=== PATIENT | male | born 1960 | race Two or more races ===

== ENCOUNTER 2017-03-09 12:43 | Inpatient (IN) | payer OTHER ==
[2017-03-09] MEDS ORDERED: SODIUM CHLORIDE 0.9% 500 ML IV STA (12:48)
[2017-03-09] MEDS ORDERED: SODIUM CHLORIDE 0.9% 1,000 ML IV STA ×2 (12:48)
[2017-03-09] MEDS ORDERED: MORPHINE SULFATE 10 MG/ML SYRINGE IV STA (12:48)
[2017-03-09] MEDS ORDERED: ONDANSETRON 4 MG/2 ML VIAL IVP STA (12:48)
--- NOTE | 2017-03-09 12:50 | ED ---
General Adult HPI - General Stated complaint: GA Time Seen by Provider: 03/09/17 12:45 Source: RN notes reviewed, old records reviewed - History of Present Illness Initial comments: This is a 57-year-old male to the ER for evaluation. Patient presents today for evaluation regarding pain. Severe pain severe acetify paints verified chest pain radiating to his back rating to his right shoulder. Patient has no significant medical history. No significant history of similar pain. No nausea vomiting maybe a little shortness of breath secondary to decreased ability to take a deep breath. Patient states that his pain is improved from prior. EMS states the patient was very diaphoretic upon arrival. Patient is still a severe pain at this time - Related Data Home Medications Medication Instructions Recorded Confirmed No Known Home Medications [No 03/09/17 03/09/17 Known Home Medications] Allergies Allergy/AdvReac Type Severity Reaction Status Date / Time No Known Allergies Allergy Verified 03/09/17 13:34 Review of Systems ROS Statement: Those systems with pertinent positive or pertinent negative responses have been documented in the HPI. ROS Other: All systems not noted in ROS Statement are negative. General Exam General appearance: alert, anxious, in distress Head exam: Present: atraumatic, normocephalic, normal inspection Eye exam: Present: normal appearance, PERRL, EOMI. Absent: scleral icterus, conjunctival injection, periorbital swelling ENT exam: Present: normal exam, mucous membranes moist Neck exam: Present: normal inspection. Absent: tenderness, meningismus, lymphadenopathy Respiratory exam: Present: normal lung sounds bilaterally. Absent: respiratory distress, wheezes, rales, rhonchi, stridor Cardiovascular Exam: Present: regular rate, normal rhythm, normal heart sounds. Absent: systolic murmur, diastolic murmur, rubs, gallop, clicks GI/Abdominal exam: Present: soft, normal bowel sounds. Absent: distended, tenderness, guarding, rebound, rigid Extremities exam: Present: normal inspection, full ROM, normal capillary refill. Absent: tenderness, pedal edema, joint swelling, calf tenderness Back exam: Present: normal inspection Neurological exam: Present: alert, oriented X3, CN II-XII intact Psychiatric exam: Present: normal affect, normal mood Skin exam: Present: warm, dry, intact, normal color. Absent: rash Course Vital Signs 03/09/17 03/09/17 03/09/17 12:48 13:17 14:34 Temperature 98.2 F 99.7 F H Pulse Rate 100 83 86 Respiratory 18 18 18 Rate Blood Pressure 194/134 131/75 139/66 O2 Sat by Pulse 96 96 96 Oximetry 03/09/17 15:19 Temperature Pulse Rate 82 Respiratory 18 Rate Blood Pressure 136/82 O2 Sat by Pulse 97 Oximetry - Reevaluation(s) Reevaluation #1: 03/09/17 14:39 Patient is in severe is pain at this point responding to pain medication Reevaluation #2: 03/09/17 15:34 Patient is smoker with greater than 15 minutes, questions are answered EKG Findings - EKG Comments: EKG Findings:: EKG shows normal sinus rhythm rate of 98, NV 170, QRS 86, QTc 444 Medical Decision Making - Medical Decision Making 57 male the ER with severe chest pain severe flank pain severe shoulder pain. 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, anticoagulation - Lab Data Result diagrams: 03/09/17 13:06 03/09/17 13:06 Lab Results 03/09/17 03/09/17 03/09/17 Range/Units 13:06 13:06 13:06 WBC 8.0 (3.8-10.6) k/uL RBC 5.21 (4.30-5.90) m/uL Hgb 14.5 (13.0-17.5) gm/dL Hct 44.2 (39.0-53.0) % MCV 85.0 (80.0-100.0) fL MCH 27.9 (25.0-35.0) pg MCHC 32.8 (31.0-37.0) g/dL RDW 14.7 (11.5-15.5) % Plt Count 264 (150-450) k/uL Neutrophils % 60 % Lymphocytes % 28 % Monocytes % 8 % Eosinophils % 1 % Basophils % 1 % Neutrophils # 4.8 (1.3-7.7) k/uL Lymphocytes # 2.2 (1.0-4.8) k/uL Monocytes # 0.6 (0-1.0) k/uL Eosinophils # 0.1 (0-0.7) k/uL Basophils # 0.0 (0-0.2) k/uL PT (9.0-12.0) sec INR (<1.2) APTT (22.0-30.0) sec D-Dimer (<0.60) mg/L FEU Sodium 141 (137-145) mmol/L Potassium 4.4 (3.5-5.1) mmol/L Chloride 108 H (98-107) mmol/L Carbon Dioxide 23 (22-30) mmol/L Anion Gap 10 mmol/L BUN 12 (9-20) mg/dL Creatinine 0.88 (0.66-1.25) mg/dL Est GFR (MDRD) Af Amer >60 (>60 ml/min/1.73 sqM) Est GFR (MDRD) Non-Af >60 (>60 ml/min/1.73 sqM) Glucose 129 H (74-99) mg/dL Plasma Lactic Acid Baron (0.7-2.0) mmol/L Calcium 9.6 (8.4-10.2) mg/dL Phosphorus 3.2 (2.5-4.5) mg/dL Magnesium 1.8 (1.6-2.3) mg/dL Total Bilirubin 0.4 (0.2-1.3) mg/dL AST 20 (17-59) U/L ALT 28 (21-72) U/L Alkaline Phosphatase 85 (38-126) U/L Total Creatine Kinase 145 (55-170) U/L CK-MB (CK-2) 1.7 (0.0-2.4) ng/mL CK-MB (CK-2) Rel Index 1.2 Troponin I <0.012 (0.000-0.034) ng/mL Total Protein 7.1 (6.3-8.2) g/dL Albumin 4.0 (3.5-5.0) g/dL Lipase (23-300) U/L 03/09/17 03/09/17 03/09/17 Range/Units 13:06 13:06 13:06 WBC (3.8-10.6) k/uL RBC (4.30-5.90) m/uL Hgb (13.0-17.5) gm/dL Hct (39.0-53.0) % MCV (80.0-100.0) fL MCH (25.0-35.0) pg MCHC (31.0-37.0) g/dL RDW (11.5-15.5) % Plt Count (150-450) k/uL Neutrophils % % Lymphocytes % % Monocytes % % Eosinophils % % Basophils % % Neutrophils # (1.3-7.7) k/uL Lymphocytes # (1.0-4.8) k/uL Monocytes # (0-1.0) k/uL Eosinophils # (0-0.7) k/uL Basophils # (0-0.2) k/uL PT 10.4 (9.0-12.0) sec INR 1.0 (<1.2) APTT 22.5 (22.0-30.0) sec D-Dimer 2.32 H (<0.60) mg/L FEU Sodium (137-145) mmol/L Potassium (3.5-5.1) mmol/L Chloride (98-107) mmol/L Carbon Dioxide (22-30) mmol/L Anion Gap mmol/L BUN (9-20) mg/dL Creatinine (0.66-1.25) mg/dL Est GFR (MDRD) Af Amer (>60 ml/min/1.73 sqM) Est GFR (MDRD) Non-Af (>60 ml/min/1.73 sqM) Glucose (74-99) mg/dL Plasma Lactic Acid Baron 1.4 (0.7-2.0) mmol/L Calcium (8.4-10.2) mg/dL Phosphorus (2.5-4.5) mg/dL Magnesium (1.6-2.3) mg/dL Total Bilirubin (0.2-1.3) mg/dL AST (17-59) U/L ALT (21-72) U/L Alkaline Phosphatase (38-126) U/L Total Creatine Kinase (55-170) U/L CK-MB (CK-2) (0.0-2.4) ng/mL CK-MB (CK-2) Rel Index Troponin I (0.000-0.034) ng/mL Total Protein (6.3-8.2) g/dL Albumin (3.5-5.0) g/dL Lipase 83 (23-300) U/L - Radiology Data Radiology results: report reviewed (CTA is positive for PE), image reviewed Disposition Clinical Impression: Pulmonary embolism Disposition: ADMITTED IP TO THIS HOSP Condition: Fair Referrals: Nonstaff,Physician [Primary Care Provider] - 1-2 days
--- NOTE | 2017-03-09 13:10 | XR ---
EXAMINATION TYPE: XR chest 1V portable DATE OF EXAM: 03/09/2017 COMPARISON: NONE HISTORY: Shortness of breath TECHNIQUE: Single frontal view of the chest is obtained. FINDINGS: There are low lung volumes present. Left basilar subsegmental linear atelectasis is identi fied. Copious soft tissues partially obscure the costophrenic angles and lung bases. The lung finding s accentuate the pulmonary vasculature. Cardiac silhouette is upper limits of normal. No focal consol idation, discrete pleural effusion or pneumothorax is seen. IMPRESSION: Left basilar subsegmental atelectasis and low lung volumes. No focal consolidation.
[2017-03-09 13:14] LABS: Basophils % (A) 1 %; CH 28.2; CHCM 33.4; Eosinophils # (A) 0.1 k/uL (0-0.7); Eosinophils % (A) 1 %; HCT 44.2 % (39.0-53.0); HDW 2.57; HGB 14.5 gm/dL (13.0-17.5); Luc # (Auto) 0.22; Luc % (Auto) 3; Lymphocytes # (A) 2.2 k/uL (1.0-4.8); Lymphocytes % (A) 28 %; MCH 27.9 pg (25.0-35.0); MCHC 32.8 g/dL (31.0-37.0); Mean Platelet Volume 7.1; Monocytes # (A) 0.6 k/uL (0-1.0); Monocytes % (A) 8 %; Neutrophils # (A) 4.8 k/uL (1.3-7.7); Neutrophils % (A) 60 %; RBC 5.21 m/uL (4.30-5.90); RDW 14.7 % (11.5-15.5); WBC (Perox) 7.48
[2017-03-09 13:23] LABS: ALT 28 U/L (21-72); AST 20 U/L (17-59); Alkaline Phosphatase 85 U/L (38-126); Anion Gap 10 mmol/L; Blood Urea Nitrogen 12 mg/dL (9-20); Calcium 9.6 mg/dL (8.4-10.2); Carbon Dioxide 23 mmol/L (22-30); Chloride 108 mmol/L (98-107); Glucose 129 mg/dL (74-99); Magnesium 1.8 mg/dL (1.6-2.3); Non-African American GFR(MDRD) >60 (>60 ml/min/1.73 sqM); Phosphorus 3.2 mg/dL (2.5-4.5); Potassium 4.4 mmol/L (3.5-5.1); Sodium 141 mmol/L (137-145); Total Bilirubin 0.4 mg/dL (0.2-1.3); Total Protein 7.1 g/dL (6.3-8.2)
[2017-03-09 13:26] LABS: Partial Thromboplastin Time 22.5 sec (22.0-30.0); Prothrombin Time 10.4 sec (9.0-12.0)
[2017-03-09 13:37] LABS: Creatine Kinase 145 U/L (55-170)
[2017-03-09] MEDS ORDERED: MORPHINE SULFATE 10 MG/ML SYRINGE IVP STA (13:39)
[2017-03-09 13:49] LABS: Creatine Kinase MB 1.7 ng/mL (0.0-2.4); Troponin I <0.012 ng/mL (0.000-0.034)
[2017-03-09] MEDS ORDERED: RX INFO: IV CONTRAST WAS GIVEN 1 EACH MISC MISCELLANE PRN (13:55)
[2017-03-09] MEDS ORDERED: LORazepam 2 MG/ML INJ IV STA (13:56)
--- NOTE | 2017-03-09 14:57 | CT ---
EXAMINATION TYPE: CT abdomen pelvis w con DATE OF EXAM: 03/09/2017 COMPARISON: NONE HISTORY: GA CT DLP: 2392.39 mGycm CONTRAST: CT scan of the abdomen and pelvis is performed without Oral Contrast and with IV Contrast, patient in jected with 100 ml mL of Omnipaque 350. FINDINGS: LUNG BASES-: Small right-sided pleural effusion with mild compressive atelectasis. LIVER/GB: No calcified gallstones. No space occupying hepatic lesion. Biliary tree is of normal ca liber. Hepatic steatosis with mild hepatomegaly. PANCREAS: No inflammation. No distinct mass. SPLEEN: No splenic enlargement. No lesion seen. ADRENALS: No nodule. No thickening. KIDNEYS/BLADDER: No hydronephrosis. No nephrolithiasis. No disctinct renal mass. Mild urinary blad jhony wall thickening may reflect cystitis. BOWEL: Normal appendix. Normal bowel caliber. No inflammation. Umbilical hernia contains a short se gment of small bowel. Incarceration not excluded. GENITAL ORGANS: No gross abnormality. LYMPH NODES: No greater than 1cm abdominal or pelvic lymph nodes are appreciated. AORTA: No significant abnormality. OSSEOUS STRUCTURES: No significant abnormality is seen. OTHER: Bilateral fat-containing inguinal hernias. IMPRESSION: 1. Umbilical hernia contains a short segment of small bowel. Incarceration not excluded. 2. Hepatic steatosis mild hepatomegaly. 3. Fat-containing inguinal hernias.
--- NOTE | 2017-03-09 15:03 | CT ---
EXAMINATION TYPE: CT angio chest DATE OF EXAM: 03/09/2017 COMPARISON: NONE HISTORY: GA CT DLP: 605.16 mGycm. Automated Exposure Control for Dose Reduction was Utilized. CONTRAST: CTA scan of the thorax is performed with IV Contrast, patient injected with 100 ml mL of Omnipaque 35 0, pulmonary embolism protocol. MIP Images are created on CT scanner and reviewed. FINDINGS: LUNGS: Geographic areas of groundglass opacity are scattered throughout the lungs, predominating with in a dependent distribution. Additional areas of wedge-shaped opacity are seen within the right lung base, lingula and superior segment of the right lower lobe that may represent oligemia and/or pulmona ry infarct. Groundglass opacities are favored to represent multifocal atelectasis given low lung volu mes. Motion artifact limits evaluation for subcentimeter pulmonary nodules. There is no pneumothora x. Trace right pleural effusion is present. The tracheobronchial tree is patent. MEDIASTINUM: There is satisfactory enhancement of the pulmonary artery and its branches. Segmental an d subsegmental nonocclusive filling defects representing pulmonary emboli are seen to the right middl e lobe, right lower lobe, and left lower lobe. There is no bowing of the interventricular septum or r eflux of contrast into the hepatic veins. The main pulmonary artery is nonenlarged measuring 2.7 cm. There are no greater than 1 cm hilar or mediastinal lymph nodes. Nonenlarged axillary lymph nodes co ntain fatty berhane bilaterally. No cardiomegaly or pericardial effusion is seen. OTHER: There is diffuse hypoattenuation of the visualized hepatic parenchyma, most compatible with mo derate hepatic steatosis with focal fatty sparing around the gallbladder fossa and segment IVb of the liver. There is a small hiatal hernia present. Symmetric mild retroareolar gynecomastia is noted. Mi ld multilevel degenerative changes of the thoracic spine are seen as well as an exaggerated thoracic kyphosis, possibly positional. IMPRESSION: 1. Segmental and subsegmental pulmonary emboli to the right middle, right lower, and left lower lobe. No evidence of subsequent right heart strain. 2. Multifocal atelectasis and wedge-shaped areas of consolidation within the superior segment of the right lower lobe, right lung base and lingula that may represent oligemia and/or pulmonary infarcts i n the setting of pulmonary embolus. 3. Trace right pleural effusion. 4. Hepatic steatosis, appearing moderate in degree with focal fatty sparing around the gallbladder fo ssa. 5. Incidentally identified retroareolar bilateral gynecomastia. Findings relayed to the ordering physician Dr. Gilmore at 1501 on 03/09/2017.
[2017-03-09] MEDS ORDERED: NITROGLYCERIN SL TABS 0.4 MG TAB SUBLINGUAL PRN (15:31)
[2017-03-09] MEDS ORDERED: HEPARIN SODIUM,PORCINE 10,000 UNIT/ML 1 ML VIAL IV ONE (15:32)
[2017-03-09] MEDS ORDERED: HEPARIN SODIUM,PORCINE 5,000 UNIT/ML 1 ML VIAL IV PRN (15:32)
[2017-03-09 15:33] LABS: Appearance,Urine Clear (Clear); Bilirubin,Urine Negative (Negative); Glucose,Urine (UA) Negative (Negative); Ketones,Urine Negative (Negative); Leukocyte Esterase,Urine Negative (Negative); Nitrite,Urine Negative (Negative); PH, Urine 5.5 (5.0-8.0); Protein,Urine Trace (Negative); Specific Gravity,Urine 1.045 (1.001-1.035); UA Billing (MACRO vs. MICRO) CHEM; Urobilinogen,Urine <2.0 mg/dL (<2.0)
[2017-03-09] MEDS: HEPARIN SODIUM,PORCINE/D5W PMX 25,000 UNIT in DEXTROSE/WATER 1 500ML.BAG IV SCH (15:38)
--- NOTE | 2017-03-09 16:12 | US ---
EXAMINATION TYPE: US venous doppler duplex LE BI DATE OF EXAM: 03/09/2017 4:02 PM COMPARISON: NONE CLINICAL HISTORY: Pain. Bilateral leg swelling, PE SIDE PERFORMED: Bilateral TECHNIQUE: The lower extremity deep venous system is examined utilizing real time linear array sonog joyce with graded compression, doppler sonography and color-flow sonography. VESSELS IMAGED: External Iliac Vein (EIV) Common Femoral Vein Deep Femoral Vein Greater Saphenous Vein * Femoral Vein Popliteal Vein Small Saphenous Vein * Proximal Calf Veins (* superficial vessels) Grayscale, color doppler, spectral doppler imaging performed of the deep veins of the lower extremiti es. There is normal flow, compressibility, vascular waveforms. Right Leg: Negative for DVT Left Leg: Negative for DVT IMPRESSION: No evidence for DVT at this time.
[2017-03-09] MEDS: SODIUM CHLORIDE 0.9% 1,000 ML IV SCH (16:58)
[2017-03-09 21:18] LABS: Troponin I 0.017 ng/mL (0.000-0.034)
[2017-03-09] MEDS: MORPHINE SULFATE 10 MG/ML SYRINGE IV PRN (23:55)
[2017-03-10] MEDS ORDERED: CYCLOBENZAPRINE 10 MG TAB PO PRN (00:45)
[2017-03-10 02:59] LABS: Basophils % (A) 0 %; CH 27.9; CHCM 31.9; Eosinophils # (A) 0.1 k/uL (0-0.7); Eosinophils % (A) 1 %; HCT 42.1 % (39.0-53.0); HDW 2.53; HGB 13.3 gm/dL (13.0-17.5); Luc # (Auto) 0.15; Luc % (Auto) 2; Lymphocytes % (A) 28 %; MCH 27.8 pg (25.0-35.0); MCHC 31.5 g/dL (31.0-37.0); MCV 88.2 fL (80.0-100.0); Mean Platelet Volume 7.4; Monocytes # (A) 0.5 k/uL (0-1.0); Monocytes % (A) 7 %; Neutrophils # (A) 4.3 k/uL (1.3-7.7); Neutrophils % (A) 61 %; RBC 4.77 m/uL (4.30-5.90); RDW 14.9 % (11.5-15.5); WBC (Perox) 7.21
[2017-03-10 03:07] LABS: INR 1.1 (<1.2); Partial Thromboplastin Time 39.4 sec (22.0-30.0)
[2017-03-10] MEDS: SODIUM CHLORIDE 0.9% 1,000 ML IV SCH ×2 (03:10→15:53)
[2017-03-10 03:15] LABS: Cholesterol 149 mg/dL (<200); HDL Cholesterol 41 mg/dL (40-60)
[2017-03-10 03:25] LABS: Creatine Kinase 209 U/L (55-170)
[2017-03-10 03:38] LABS: Creatine Kinase MB 2.2 ng/mL (0.0-2.4); Troponin I <0.012 ng/mL (0.000-0.034)
[2017-03-10] MEDS: HEPARIN SODIUM,PORCINE/D5W PMX 25,000 UNIT in DEXTROSE/WATER 1 500ML.BAG IV SCH ×2 (04:59→15:53)
[2017-03-10] MEDS: MORPHINE SULFATE 10 MG/ML SYRINGE IV PRN ×2 (06:54→15:52)
[2017-03-10] MEDS: ASPIRIN 325 MG TAB PO SCH (08:22)
--- NOTE | 2017-03-10 08:30 | P.CRDCN ---
History of Present Illness Consult date: 03/10/17 Chief complaint: Chest pain History of present illness: This is a pleasant 57-year-old gentleman with no significant past medical history presented to the emergency room complaining of chest discomfort. The patient does have chronic exertional dyspnea over the last several years but yesterday he was in his usual state of health when suddenly developed chest discomfort mainly in the lower left chest and back. It was associated with worsening in his shortness of breath with the discomfort in the chest was a sharp kind of discomfort like a knife stabbing in the back and the chest. It was quite severe to bring him to the emergency room. The d-dimer came in to be elevated and subsequently the CTA of the chest revealed multiple PE. The EKG showed sinus rhythm with sinus tachycardia and S1 every 3 T3 pattern. Subsequently the venous duplex study was performed and showed no evidence of DVT. The patient was started on heparin IV and we get to see the patient because of the chest discomfort. The patient is not aware of any prior history of PE DVT. Currently the patient is pain-free. He did not have any other symptoms of cough or wheezing or fever or chills. 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 leatha inguinal hernias, constripation, History of Any Multi-Drug Resistant Organisms: None Reported Additional Past Surgical History / Comment(s): Brain biopsy, pt's stated he had pericarditis 9 years ago and they had to do sx -removed 1.5 liters fluid . Past Anesthesia/Blood Transfusion Reactions: No Reported Reaction Additional Past Anesthesia/Blood Transfusion Reaction / Comment(s): clausterphobia Smoking Status: Former smoker - Past Family History Mother Family Medical History: Hypertension Father Additional Family Medical History / Comment(s): parkinsons Medications and Allergies Home Medications Medication Instructions Recorded Confirmed Type No Known Home Medications [No 03/09/17 03/09/17 History Known Home Medications] Allergies Allergy/AdvReac Type Severity Reaction Status Date / Time No Known Allergies Allergy Verified 03/09/17 13:34 Physical Exam Vitals: Vital Signs Temp Pulse Pulse Resp BP BP Pulse Ox 03/10/17 08:00 97.7 F 92 16 141/92 98 03/10/17 03:00 97.5 F L 82 20 127/83 100 03/10/17 00:00 97.6 F 78 20 150/88 97 03/09/17 19:50 97.9 F 91 20 122/85 98 03/09/17 17:00 97.2 F L 54 L 18 153/67 98 03/09/17 15:19 82 18 136/82 97 03/09/17 14:34 86 18 139/66 96 03/09/17 13:17 99.7 F H 83 18 131/75 96 03/09/17 12:48 98.2 F 100 18 194/134 96 Intake and Output 03/09/17 03/10/17 03/10/17 22:59 06:59 14:59 Intake Total 1152.813 865.187 240 Output Total 1050 600 350 Balance 102.813 265.187 -110 Intake: Intake, IV Titration 434.813 265.187 Amount Heparin Sodium,Porcine/ 234.813 265.187 D5w Pmx 25,000 unit In Dextrose/Water 1 500ml. bag @ 18 UNITS/KG/HR 43. 35 mls/hr IV .[id number] [facility] Rx#:[id number] Sodium Chloride 0.9% 1, 200 000 ml @ 100 mls/hr IV . Q10H [facility] Rx#:[id number] Oral 718 600 240 Output: Urine 1050 600 350 Other: Voiding Method Urinal Urinal Weight 116.4 kg - Constitutional General appearance: no acute distress - Respiratory Respiratory: bilateral: CTA - Cardiovascular Rhythm: regular Heart sounds: normal: S1, S2 Results 03/10/17 02:47 03/09/17 13:06 Cardiac Enzymes 03/09/17 03/09/17 03/09/17 Range/Units 13:06 13:06 20:30 AST 20 (17-59) U/L CK-MB (CK-2) 1.7 2.0 (0.0-2.4) ng/mL Troponin I <0.012 0.017 (0.000-0.034) ng/mL 03/10/17 Range/Units 02:47 AST (17-59) U/L CK-MB (CK-2) 2.2 (0.0-2.4) ng/mL Troponin I <0.012 (0.000-0.034) ng/mL Coagulation 03/09/17 03/09/17 03/10/17 Range/Units 13:06 20:30 02:47 PT 10.4 11.0 (9.0-12.0) sec APTT 22.5 88.5 H 39.4 H (22.0-30.0) sec Lipids 03/10/17 Range/Units 02:47 Triglycerides 95 (<150) mg/dL Cholesterol 149 (<200) mg/dL HDL Cholesterol 41 (40-60) mg/dL CBC 03/09/17 03/10/17 Range/Units 13:06 02:47 WBC 8.0 7.0 (3.8-10.6) k/uL RBC 5.21 4.77 (4.30-5.90) m/uL Hgb 14.5 13.3 (13.0-17.5) gm/dL Hct 44.2 42.1 (39.0-53.0) % Plt Count 264 239 (150-450) k/uL Comprehensive Metabolic Panel 03/09/17 Range/Units 13:06 Sodium 141 (137-145) mmol/L Potassium 4.4 (3.5-5.1) mmol/L Chloride 108 H (98-107) mmol/L Carbon Dioxide 23 (22-30) mmol/L BUN 12 (9-20) mg/dL Creatinine 0.88 (0.66-1.25) mg/dL Glucose 129 H (74-99) mg/dL Calcium 9.6 (8.4-10.2) mg/dL AST 20 (17-59) U/L ALT 28 (21-72) U/L Alkaline Phosphatase 85 (38-126) U/L Total Protein 7.1 (6.3-8.2) g/dL Albumin 4.0 (3.5-5.0) g/dL Current Medications Generic Name Dose Route Start Last Admin Trade Name Freq PRN Reason Stop Dose Admin Aspirin 325 mg 03/10/17 09:00 03/10/17 08:22 Aspirin PO 325 mg DAILY [facility] Administration Cyclobenzaprine HCl 10 mg 03/10/17 00:45 03/10/17 02:50 Flexeril PO 10 mg TID PRN Administration Muscle Spasm Heparin Sodium (Porcine) 0 unit 03/09/17 15:32 03/10/17 03:35 Heparin IV 9,600 unit PER PROTOCOL PRN Administration Low PTT Protocol Heparin Sodium/Dextrose 25,000 500 mls @ 43.35 mls/hr 03/09/17 15:45 04:59 unit/ IV Solution IV 20 units/kg/hr .[id number] [facility] 48.17 mls/hr Protocol Administration 18 UNITS/KG/HR Sodium Chloride 1,000 mls @ 100 mls/hr 03/09/17 15:45 03/10/17 03:10 Saline 0.9% IV 100 mls/hr .Q10H [facility] Administration Miscellaneous Information 1 each 03/09/17 13:55 03/09/17 14:33 Rx Info: Iv Contrast Was Given MISCELLANE 03/11/17 13:55 1 each DAILY PRN Administration Per Protocol Morphine Sulfate 4 mg 03/09/17 15:31 03/10/17 06:54 Morphine Sulfate (Inj) IV 4 mg Q5M PRN Administration Chest Pain Nitroglycerin 0.4 mg 03/09/17 15:31 Nitrostat SUBLINGUAL Q5M PRN Chest Pain Intake and Output 03/09/17 03/10/17 03/10/17 22:59 06:59 14:59 Intake Total 1152.813 865.187 240 Output Total 1050 600 350 Balance 102.813 265.187 -110 Intake: Intake, IV Titration 434.813 265.187 Amount Heparin Sodium,Porcine/ 234.813 265.187 D5w Pmx 25,000 unit In Dextrose/Water 1 500ml. bag @ 18 UNITS/KG/HR 43. 35 mls/hr IV .[id number] [facility] Rx#:[id number] Sodium Chloride 0.9% 1, 200 000 ml @ 100 mls/hr IV . Q10H [facility] Rx#:[id number] Oral 718 600 240 Output: Urine 1050 600 350 Other: Voiding Method Urinal Urinal Weight 116.4 kg 03/10/17 02:47 03/09/17 13:06 Assessment and Plan Assessment: This is a pleasant 57-year-old gentleman with no significant past medical history presented to the emergency room was pleuritic chest discomfort and was diagnosed was multiple PE. No DVT by venous duplex study. We will continue the heparin IV and assessed the patient if the insurance will cover oral anticoagulation. We'll follow-up with the echocardiogram which was ordered to see if there is any evidence of RV enlargement. Troponin was checked and came in to be unremarkable. We'll continue following up with the patient.
--- NOTE | 2017-03-10 13:31 | P.CNPUL ---
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 Patient usually drives very long distances on a daily basis without resting or stretching. Patient presented to the ER on 2016 complaining of sudden episode of right sided chest pain mostly in the back with radiation to the neck area. This was also associated with some shortness of breath and felt like a sharp knife stabbing into the back of the chest. Upon evaluation in the ER, patient was found to have elevated troponin level, CT angiogram of the chest showed multiple areas of pulmonary embolism but mostly in the right lower lobe. Patient was admitted, and this consult was initiated. Patient was started on heparin, which she seems to be tolerating well, and his PTT is therapeutic. Venous Doppler was negative for deep vein thrombosis. I reviewed the CT of the chest myself, there is evidence of segmental and subsegmental pulmonary emboli in the right middle right lower and left lower lobe. No evidence of subsequent right heart strain. There was also trace of right pleural effusion. CT of abdomen and pelvis was noted to be relatively unremarkable. Presently during my evaluation, patient had no chest pain, however he continues to have some shortness of breath, no cough no wheezing no fever no chills no hemoptysis. Patient denied any headache blurred vision, no palpitations, no anginal symptoms. Denied a nausea vomiting abdominal pain melena or hematemesis. Review of Systems 14 point review of systems were obtained, please refer to pertinent positives in HPI, otherwise remaining systems are negative. 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 leatha inguinal hernias, constripation, History of Any Multi-Drug Resistant Organisms: None Reported Additional Past Surgical History / Comment(s): Brain biopsy, pt's stated he had pericarditis 9 years ago and they had to do sx -removed 1.5 liters fluid . Past Anesthesia/Blood Transfusion Reactions: No Reported Reaction Additional Past Anesthesia/Blood Transfusion Reaction / Comment(s): clausterphobia Smoking Status: Former smoker - Past Family History Mother Family Medical History: Hypertension Father Additional Family Medical History / Comment(s): parkinsons Medications and Allergies Home Medications Medication Instructions Recorded Confirmed Type No Known Home Medications [No 03/09/17 03/09/17 History Known Home Medications] Allergies Allergy/AdvReac Type Severity Reaction Status Date / Time No Known Allergies Allergy Verified 03/09/17 13:34 Physical Exam Vitals: Vital Signs Temp Pulse Pulse Resp BP BP Pulse Ox 03/10/17 11:32 71 03/10/17 10:59 97.7 F 71 16 134/74 98 03/10/17 08:00 97.7 F 92 16 141/92 98 03/10/17 03:00 97.5 F L 82 20 127/83 100 03/10/17 00:00 97.6 F 78 20 150/88 97 03/09/17 19:50 97.9 F 91 20 122/85 98 03/09/17 17:00 97.2 F L 54 L 18 153/67 98 03/09/17 15:19 82 18 136/82 97 03/09/17 14:34 86 18 139/66 96 Intake and Output 03/09/17 03/10/17 03/10/17 22:59 06:59 14:59 Intake Total 1152.813 865.187 240 Output Total 1050 600 970 Balance 102.813 265.187 -730 Intake: Intake, IV Titration 434.813 265.187 Amount Heparin Sodium,Porcine/ 234.813 265.187 D5w Pmx 25,000 unit In Dextrose/Water 1 500ml. bag @ 18 UNITS/KG/HR 43. 35 mls/hr IV .[id number] [facility] Rx#:[id number] Sodium Chloride 0.9% 1, 200 000 ml @ 100 mls/hr IV . Q10H [facility] Rx#:[id number] Oral 718 600 240 Output: Urine 1050 600 970 Other: Voiding Method Urinal Urinal # Voids 1 # Bowel Movements 0 Weight 116.4 kg General appearance: Physical exam revealed a 57-year-old white male in no form of respiratory distress, but seems to be a bit anxious. Head exam: atraumatic, normocephalic, normal inspection Eye exam: normal appearance, PERRL, EOMI. Absent: scleral icterus, conjunctival injection, periorbital swelling ENT exam: normal exam, mucous membranes moist Neck exam: normal inspection. No neck masses, no JVD, no stridor, no cervical lymphadenopathy. Respiratory exam: Diminished breath sound bilaterally no crackles or rhonchi or wheezes. Cardiovascular Exam: Normal S1 and S2, no S3 gallop, no murmur. GI/Abdominal exam: soft, normal bowel sounds. Absent: distended, tenderness, guarding, rebound, rigid Extremities exam: normal inspection, full ROM, normal capillary refill. No evidence of swelling or tenderness in both calf areas bilaterally. Back exam: normal inspection Neurological exam: alert, oriented X3, no gross focal neurologic deficit Psychiatric exam: Normal mood, affect and mental status examination Skin exam: Present: warm, dry, intact, normal color. Absent: rash Results - Laboratory Findings CBC and BMP: 03/10/17 02:47 03/09/17 13:06 PT/INR, D-dimer PT 11.0 sec (9.0-12.0) 03/10/17 02:47 INR 1.1 (<1.2) 03/10/17 02:47 D-Dimer 2.32 mg/L FEU (<0.60) H 03/09/17 13:06 Abnormal lab findings: Abnormal Labs 03/09/17 03/09/17 03/09/17 13:06 13:06 15:10 APTT D-Dimer 2.32 H Chloride 108 H Glucose 129 H Total Creatine Kinase Ur Specific [place] 1.045 H Urine Protein Trace H 03/09/17 03/09/17 03/10/17 20:30 20:30 02:47 APTT 88.5 H D-Dimer Chloride Glucose Total Creatine Kinase 178 H 209 H Ur Specific [place] Urine Protein 03/10/17 03/10/17 02:47 10:11 APTT 39.4 H 73.8 H D-Dimer Chloride Glucose Total Creatine Kinase Ur Specific [place] Urine Protein - Diagnostic Findings CT scan - chest: image reviewed Assessment and Plan Assessment: Impression: 1 acute pulmonary embolism, most likely secondary to his long driving hours without resting and stretching. 2 history of GERD, hypertension, and remote history of pericarditis. Recommendation: Agree with present treatment plan, consider switching the patient to Xarelto in a.m., plan to discharge the patient home and follow up on outpatient basis. Time with Patient: Greater than 30
--- NOTE | 2017-03-10 13:59 | ECHOF ---
Referral Reason:pe MEASUREMENTS -------- HEIGHT: 182.9 cm WEIGHT: 116.1 kg BP: RVIDd: 3.7 cm (< 3.3) IVSd: 1.5 cm (0.6 - 1.1) LVIDd: 4.2 cm (3.9 - 5.3) LVPWd: 1.4 cm (0.6 - 1.1) IVSs: 1.8 cm LVIDs: 2.6 cm LVPWs: 1.5 cm LA Diam: 3.8 cm (2.7 - 3.8) LAESV Index (A-L): 28.05 ml/m Ao Diam: 3.4 cm (2.0 - 3.7) AV Cusp: 2.2 cm (1.5 - 2.6) LA Diam: 4.0 cm (2.7 - 3.8) MV EXCURSION: 17.701 mm (> 18.000) MV EF SLOPE: 72 mm/s (70 - 150) EPSS: 0.2 cm MV E Willem: 0.72 m/s MV DecT: 280 ms MV A Willem: 0.85 m/s MV E/A Ratio: 0.85 RAP: 5.00 mmHg RVSP: 13.38 mmHg FINDINGS -------- Sinus rhythm. This was a technically adequate study. The left ventricular size is normal. There is mild concentric left ventricular hypertrophy. Overa ll left ventricular systolic function is normal with, an EF between 55 - 60 %. The right ventricle is mildly enlarged. The left atrial size is normal. Normal LA size by volume 22+/-6 ml/m2. The right atrial size is normal. The aortic valve is trileaflet, and appears structurally normal. No aortic stenosis or regurgitation. The mitral valve is normal. Mild mitral regurgitation is present. Mild tricuspid regurgitation present. There is no evidence of pulmonary hypertension. The right v entricular systolic pressure, as measured by Doppler, is 13.38mmHg. There is no pulmonic regurgitation present. The aortic root size is normal. There is no pericardial effusion. CONCLUSIONS -------- 1. Sinus rhythm. 2. This was a technically adequate study. 3. There is mild concentric left ventricular hypertrophy. 4. Overall left ventricular systolic function is normal with, an EF between 55 - 60 %. 5. The right ventricle is mildly enlarged. 6. Normal LA size by volume 22+/-6 ml/m2. 7. The aortic valve is trileaflet, and appears structurally normal. No aortic stenosis or regurgitati on. 8. Mild mitral regurgitation is present. 9. Mild tricuspid regurgitation present. 10. There is no evidence of pulmonary hypertension. 11. There is no pulmonic regurgitation present. 12. The aortic root size is normal. 13. There is no pericardial effusion. [employer]: Breann Harry RDCS
--- NOTE | 2017-03-10 21:38 | P.HPIM ---
History of Present Illness H&P Date: 03/09/17 Chief Complaint: Chest pain Patient is a 57-year-old male with a history of pericarditis 9 years ago came to ER with complaints of substernal sharp chest pain 10 out of 10 radiating to the back. Patient denied any cough is from production. No recent illnesses sick contacts at home. 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 CT angiogram of the chest showed multiple areas of right lower lobe pulmonary embolism. Patient was having elevated troponin as well. Patient was started on heparin IV. Patient denied any history of blood clots in the family. Patient denied any nausea vomiting or abdominal pain. Patient does have history of pericarditis 9 years ago and also had pleural effusion and patient underwent thoracotomy. Patient otherwise denied any complaints. Patient denied any loss of appetite or weight loss. Patient says that his been chronically having shortness of breath with exertion. Review of Systems Constitutional: Patient denies any fever or chills . No generalized weakness or weight loss. Abdomen: Patient denied nausea vomiting and diarrhea and abdominal pain. Cardiovascular: Patient does have substernal chest pain. 2 back. No palpitations. No leg swelling. Respiratory: patient denied any cough is from production. No shortness of breath Neurologic: Patient denied any numbness or tingling headache. Musculoskeletal: Patient denies any complaints of joint swelling or deformity. Skin: Negative Psychiatric: Negative Endocrine: No heat or cold intolerance. No recent weight gain. Genitourinary: No dysuria or hematuria. All other 14 point ROS negative except the above Past Medical History Additional Past Medical History / Comment(s): Paracarditis History of Any Multi-Drug Resistant Organisms: None Reported Additional Past Surgical History / Comment(s): Brain biopsey Past Psychological History: No Psychological Hx Reported Smoking Status: Former smoker Past Alcohol Use History: Occasional Past Drug Use History: None Reported - Past Family History Mother Family Medical History: Hypertension Father Additional Family Medical History / Comment(s): parkinsons Medications and Allergies Home Medications Medication Instructions Recorded Confirmed Type No Known Home Medications [No 03/09/17 03/09/17 History Known Home Medications] Allergies Allergy/AdvReac Type Severity Reaction Status Date / Time No Known Allergies Allergy Verified 03/09/17 13:34 Physical Exam Vitals: Vital Signs Temp Pulse Resp BP Pulse Ox 03/09/17 15:19 82 18 136/82 97 03/09/17 14:34 86 18 139/66 96 03/09/17 13:17 99.7 F H 83 18 131/75 96 03/09/17 12:48 98.2 F 100 18 194/134 96 Intake and Output 03/09/17 03/09/17 03/09/17 06:59 14:59 22:59 Other: Weight 120.429 kg Patient Weight 03/10/17 06:59 Weight 120.429 kg PHYSICAL EXAMINATION: Patient is lying in the bed comfortably, no acute distress, awake alert and oriented.. HEENT: Normocephalic. Neck is supple. Pupils reactive. Nostrils clear. Oral cavity is moist. Ears reveal no drainage. Neck reveals no JVD, carotid bruits, or thyromegaly. CHEST EXAMINATION: Trachea is central. Symmetrical expansion. Lung ramey clear to auscultation and percussion. CARDIAC: Normal S1, S2 with no gallops. No murmurs ABDOMEN: Soft. Bowel sounds normal. No organomegaly. No abdominal bruits. Extremities: reveal no edema. No clubbing or cyanosis Neurologically awake, alert, oriented x3 with well-coordinated movements. No focal deficits noted Skin: No rash or skin lesions. Psychiatric: Cooperative. Nonsuicidal Musculoskeletal: No joint swelling or deformity. Normal range of motion. Results CBC & Chem 7: 03/10/17 02:47 03/09/17 13:06 Labs: Abnormal Lab Results - Last 24 Hours (Table) 03/09/17 03/09/17 03/09/17 Range/Units 13:06 13:06 15:10 D-Dimer 2.32 H (<0.60) mg/L FEU Chloride 108 H (98-107) mmol/L Glucose 129 H (74-99) mg/dL Ur Specific [place] 1.045 H (1.001-1.035) Urine Protein Trace H (Negative) Assessment and Plan Assessment: Impression #1 acute right lower lobe pulmonary embolism. 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 Pulmonary and cardiology have been consulted. CTA chest showed no cardiac strain. Will continue the current management and follow up closely. Discussed with his at bedside in detail.
--- NOTE | 2017-03-10 23:20 | P.PN ---
Subjective Progress Note Date: 03/10/17 Principal diagnosis: Acute pulmonary embolism Patient is a 57-year-old male with a history of pericarditis 9 years ago came to ER with complaints of substernal sharp chest pain 10 out of 10 radiating to the back. Patient denied any cough is from production. No recent illnesses sick contacts at home. 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 CT angiogram of the chest showed multiple areas of right lower lobe pulmonary embolism. Patient was having elevated troponin as well. Patient was started on heparin IV. Patient denied any history of blood clots in the family. Patient denied any nausea vomiting or abdominal pain. Patient does have history of pericarditis 9 years ago and also had pleural effusion and patient underwent thoracotomy. Patient otherwise denied any complaints. Patient denied any loss of appetite or weight loss. Patient says that his been chronically having shortness of breath with exertion. On 03/10/2017 Patient says that his chest pain is much improved today. Lower extremity duplex is negative for DVT. 2-D echocardiogram showed normal ejection fraction. No pericardial effusion. Patient is being continued on heparin IV. No fever no chills. No complaints of short of breath. No acute overnight issues. All other review of systems negative except the above current medications reviewed Objective - Vital Signs Vital signs: Vital Signs Temp 99.0 F 03/10/17 20:24 Pulse 76 03/10/17 20:24 Resp 18 03/10/17 20:24 BP 135/73 03/10/17 20:24 Pulse Ox 96 03/10/17 20:24 Intake & Output 03/10/17 03/10/17 03/11/17 06:59 18:59 06:59 Intake Total 9204.686 1074 Output Total 1650 970 Balance 250.000 430 Weight 116.4 kg Intake: Intake, IV Titration 700.000 500 Amount Heparin Sodium,Porcine/ 500.000 500 D5w Pmx 25,000 unit In Dextrose/Water 1 500ml. bag @ 18 UNITS/KG/HR 43. 35 mls/hr IV .[id number] [facility] Rx#:[id number] Sodium Chloride 0.9% 1, 200 000 ml @ 100 mls/hr IV . Q10H [facility] Rx#:[id number] Oral 1200 900 Output: Urine 1650 970 Other: Voiding Method Urinal Urinal # Voids 4 # Bowel Movements 0 - Exam PHYSICAL EXAMINATION: Patient is lying in the bed comfortably, no acute distress, awake alert and oriented.. HEENT: Normocephalic. Neck is supple. Pupils reactive. Nostrils clear. Oral cavity is moist. Ears reveal no drainage. Neck reveals no JVD, carotid bruits, or thyromegaly. CHEST EXAMINATION: Trachea is central. Symmetrical expansion. Lung ramey clear to auscultation and percussion. CARDIAC: Normal S1, S2 with no gallops. No murmurs ABDOMEN: Soft. Bowel sounds normal. No organomegaly. No abdominal bruits. Extremities: reveal no edema. No clubbing or cyanosis Neurologically awake, alert, oriented x3 with well-coordinated movements. No focal deficits noted Skin: No rash or skin lesions. Psychiatric: Operative. Nonsuicidal Musculoskeletal: No joint swelling or deformity. Normal range of motion. - Labs CBC & Chem 7: 03/10/17 02:47 03/09/17 13:06 Labs: Abnormal Lab Results - Last 24 Hours (Table) 03/10/17 03/10/17 03/10/17 Range/Units 02:47 02:47 10:11 APTT 39.4 H 73.8 H (22.0-30.0) sec Total Creatine Kinase 209 H (55-170) U/L Microbiology - Last 24 Hours (Table) 03/09/17 15:10 Urine Culture - Preliminary Urine,Voided Assessment and Plan Assessment: Impression #1 acute right lower lobe pulmonary embolism. 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 Pulmonary and cardiology is following.. CTA chest showed no cardiac strain. Will change to oral anticoagulants tomorrow. Will continue the current management and follow up closely. Discussed with his at bedside in detail.
[2017-03-11] MEDS: SODIUM CHLORIDE 0.9% 1,000 ML IV SCH ×2 (03:10→07:44)
[2017-03-11] MEDS: HEPARIN SODIUM,PORCINE/D5W PMX 25,000 UNIT in DEXTROSE/WATER 1 500ML.BAG IV SCH (03:10)
[2017-03-11 06:21] LABS: Basophils % (A) 0 %; CH 27.9; CHCM 32.4; Eosinophils # (A) 0.1 k/uL (0-0.7); Eosinophils % (A) 2 %; HCT 42.1 % (39.0-53.0); HDW 2.54; HGB 13.2 gm/dL (13.0-17.5); Luc # (Auto) 0.16; Luc % (Auto) 2; Lymphocytes # (A) 2.1 k/uL (1.0-4.8); Lymphocytes % (A) 30 %; MCH 27.2 pg (25.0-35.0); MCHC 31.4 g/dL (31.0-37.0); MCV 86.6 fL (80.0-100.0); Mean Platelet Volume 7.4; Monocytes # (A) 0.5 k/uL (0-1.0); Monocytes % (A) 7 %; Neutrophils # (A) 4.1 k/uL (1.3-7.7); Neutrophils % (A) 59 %; RBC 4.87 m/uL (4.30-5.90); RDW 14.9 % (11.5-15.5); WBC (Perox) 6.69
[2017-03-11 06:34] LABS: INR 1.1 (<1.2); Partial Thromboplastin Time 53.3 sec (22.0-30.0); Prothrombin Time 10.9 sec (9.0-12.0)
[2017-03-11 07:37] VITALS: RESP 16
[2017-03-11] MEDS: ASPIRIN 325 MG TAB PO SCH (07:39)
[2017-03-11] MEDS ORDERED: RIVAROXABAN 15 MG TAB PO SCH (09:15)
--- NOTE | 2017-03-11 11:14 | P.PN ---
Subjective Progress Note Date: 03/11/17 Principal diagnosis: Pulmonary embolism This is a pleasant 57-year-old gentleman with history of hypertension and GERD. He presented to the hospital with symptoms of severe chest discomfort. D-dimer came back to be elevated and subsequently patient underwent a CT of the chest which revealed multiple pulmonary embolism. EKG showed normal sinus rhythm with sinus tachycardia as well as associated S1 Q3 T3 pattern. Venous Duplex study was also positive for DVT. She was initially started on heparin, today was initiated on Xarelto 15 mg one tablet by mouth twice a day which she will take for 21 days, following that the patient will be started on xarelto 20 mg daily. He has been educated regarding his new medication. Patient has also been advised to wear bilateral USHA hose stockings. 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 Objective - Vital Signs Vital signs: Vital Signs Temp 98.8 F 03/11/17 07:35 Pulse 81 03/11/17 07:42 Resp 16 03/11/17 07:42 BP 143/72 03/11/17 07:35 Pulse Ox 97 03/11/17 07:35 Intake & Output 03/10/17 03/11/17 03/11/17 18:59 06:59 18:59 Intake Total 1400 1300 360 Output Total 970 Balance 430 1300 360 Weight 120.5 kg Intake: Intake, IV Titration 500 1300 Amount Heparin Sodium,Porcine/ 500 500 D5w Pmx 25,000 unit In Dextrose/Water 1 500ml. bag @ 18 UNITS/KG/HR 43. 35 mls/hr IV .[id number] [facility] Rx#:[id number] Sodium Chloride 0.9% 1, 800 000 ml @ 100 mls/hr IV . Q10H [facility] Rx#:[id number] Oral 900 360 Output: Urine 970 Other: Voiding Method Urinal # Voids 4 2 # Bowel Movements 0 - Exam PHYSICAL EXAMINATION: HEENT: Head is atraumatic, normocephalic. Pupils equal, round. Neck is supple. There is no elevated jugular venous pressure. HEART EXAMINATION: Heart S1, S2 normal. No murmur or gallop heard. CHEST EXAMINATION: Lungs are clear to auscultation and precussion. No chest wall tenderness is noted on palpation or with deep breathing. ABDOMEN: Soft, nontender. Bowel sounds are heard. No organomegaly noted. EXTREMITIES: 2+ peripheral pulses with trace evidence of peripheral edema and no calf tenderness noted]. NEUROLOGIC [patient is awake, alert and oriented -3.] . - Labs CBC & Chem 7: 03/11/17 05:41 03/09/17 13:06 Labs: Abnormal Lab Results - Last 24 Hours (Table) 03/11/17 Range/Units 05:41 APTT 53.3 H (22.0-30.0) sec Microbiology - Last 24 Hours (Table) 03/09/17 15:10 Urine Culture - Final Urine,Voided Assessment and Plan Plan: Assessment and plan #1 bilateral pulmonary embolism with evidence of DVT. Patient was on IV heparin , with this will be discontinued today and patient will be initiated on Xarelto 15 mg one tablet by mouth twice a day which she will continue for 21 days, subsequent to that he will take 20 mg daily. We will also recommend that the patient wear bilateral knee-high antiembolism stockings. #2 hypertension #3 GERD Plan Patient will continue Xarelto as directed, we will also provide antiembolism stockings. Patient lives in [place], he has been advised regarding his follow- up appointments.
[2017-03-11 11:20] VITALS: BP 135/44; PULSE 74; TEMP 97.2
--- NOTE | 2017-03-11 11:56 | P.PN ---
Subjective Progress Note Date: 03/11/17 Principal diagnosis: Pulmonary emboli more so in the right lower lobe. 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 Patient usually drives very long distances on a daily basis without resting or stretching. Patient presented to the ER on 2016 complaining of sudden episode of right sided chest pain mostly in the back with radiation to the neck area. This was also associated with some shortness of breath and felt like a sharp knife stabbing into the back of the chest. Upon evaluation in the ER, patient was found to have elevated troponin level, CT angiogram of the chest showed multiple areas of pulmonary embolism but mostly in the right lower lobe. Patient was admitted, and this consult was initiated. Patient was started on heparin, which she seems to be tolerating well, and his PTT is therapeutic. Venous Doppler was negative for deep vein thrombosis. I reviewed the CT of the chest myself, there is evidence of segmental and subsegmental pulmonary emboli in the right middle right lower and left lower lobe. No evidence of subsequent right heart strain. There was also trace of right pleural effusion. CT of abdomen and pelvis was noted to be relatively unremarkable. Presently during my evaluation, patient had no chest pain, however he continues to have some shortness of breath, no cough no wheezing no fever no chills no hemoptysis. Patient denied any headache blurred vision, no palpitations, no anginal symptoms. Denied a nausea vomiting abdominal pain melena or hematemesis. Patient is seen again today 02/08/2017 in follow-up on the selective care unit. He is awake and alert in no acute distress. He denies any worsening shortness of breath, cough or congestion. No right-sided chest pain. No hemoptysis. Maintaining good O2 saturations in the 90s on room air. His heparin has been discontinued and the patient was initiated on Xarelto. He is quite anxious to go home. Objective - Vital Signs Vital signs: Vital Signs Temp 97.2 F L 03/11/17 11:19 Pulse 74 03/11/17 11:20 Resp 16 03/11/17 11:20 BP 135/44 03/11/17 11:19 Pulse Ox 95 03/11/17 11:19 Intake & Output 1103/11/17 03/11/17 18:59 06:59 18:59 Intake Total 1400 1300 360 Output Total 970 Balance 430 1300 360 Weight 120.5 kg Intake: Intake, IV Titration 500 1300 Amount Heparin Sodium,Porcine/ 500 500 D5w Pmx 25,000 unit In Dextrose/Water 1 500ml. bag @ 18 UNITS/KG/HR 43. 35 mls/hr IV .[id number] [facility] Rx#:[id number] Sodium Chloride 0.9% 1, 800 000 ml @ 100 mls/hr IV . Q10H [facility] Rx#:[id number] Oral 900 360 Output: Urine 970 Other: Voiding Method Urinal # Voids 4 2 2 # Bowel Movements 0 0 - Exam General appearance: Physical exam revealed a 57-year-old white male in no form of respiratory distress, but seems to be a bit anxious. Head exam: atraumatic, normocephalic, normal inspection Eye exam: normal appearance, PERRL, EOMI. Absent: scleral icterus, conjunctival injection, periorbital swelling ENT exam: normal exam, mucous membranes moist Neck exam: normal inspection. No neck masses, no JVD, no stridor, no cervical lymphadenopathy. Respiratory exam: Diminished breath sound bilaterally no crackles or rhonchi or wheezes. Cardiovascular Exam: Normal S1 and S2, no S3 gallop, no murmur. GI/Abdominal exam: soft, normal bowel sounds. Absent: distended, tenderness, guarding, rebound, rigid Extremities exam: normal inspection, full ROM, normal capillary refill. No evidence of swelling or tenderness in both calf areas bilaterally. Back exam: normal inspection Neurological exam: alert, oriented X3, no gross focal neurologic deficit Psychiatric exam: Normal mood, affect and mental status examination Skin exam: Present: warm, dry, intact, normal color. Absent: rash - Labs CBC & Chem 7: 03/11/17 05:41 03/09/17 13:06 Labs: Abnormal Lab Results - Last 24 Hours (Table) 03/11/17 Range/Units 05:41 APTT 53.3 H (22.0-30.0) sec Microbiology - Last 24 Hours (Table) 03/09/17 15:10 Urine Culture - Final Urine,Voided Assessment and Plan Assessment: Impression: 1 acute pulmonary embolism, most likely secondary to his long driving hours without resting and stretching. 2 history of GERD, hypertension, and remote history of pericarditis. Recommendation: The patient was seen and evaluated by Dr. Morales. He is stable from the pulmonary standpoint. He is cleared for discharge. He'll remain on Xarelto. 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 He should follow-up in our office in 1- 2 weeks' time. He had his are both encouraged however to call sooner with any recurrence of symptoms or other questions or concerns. I, the cosigning physician, have performed a history and physical examination on the patient. Lung sounds are clear. Maintaining good O2 saturations in the 90s on room air. I have discussed the assessment and plan of care with my nurse practitioner, Lulu Harding. I attest the above documented note as dictated by her.
--- NOTE | 2017-03-12 00:23 | P.DS ---
Providers Date of admission: 03/09/17 15:31 Expected date of discharge: 03/11/17 Attending physician: Diomedes Valencia Consults: 03/09/17 15:31 Consult Physician Urgent Consulting Provider: Antolin Morales Consult Reason/Comments: known Do you want consulting provider notified?: Yes Consult Physician Urgent Consulting Provider: Lj Hughes Consult Reason/Comments: pe Do you want consulting provider notified?: Yes Primary care physician: Physician Nonstaff Hospital Course: Discharge diagnosis #1 acute right lower lobe pulmonary embolism. 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 Patient denied any cough is from production. No recent illnesses sick contacts at home. 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 CT angiogram of the chest showed multiple areas of right lower lobe pulmonary embolism. Patient was having elevated troponin as well. Patient was started on heparin IV. Patient denied any history of blood clots in the family. Patient denied any nausea vomiting or abdominal pain. Patient does have history of pericarditis 9 years ago and also had pleural effusion and patient underwent thoracotomy. Patient otherwise denied any complaints. Patient denied any loss of appetite or weight loss. Patient says that his been chronically having shortness of breath with exertion. On 03/10/2017 Patient says that his chest pain is much improved today. Lower extremity duplex is negative for DVT. 2-D echocardiogram showed normal ejection fraction. No pericardial effusion. Patient is being continued on heparin IV. No fever no chills. No complaints of short of breath. No acute overnight issues. 03/11/2017 Patient is medically today and is being discharged home with oral anticoagulants. Patient was continued on IV heparin and pain management. Pulmonary and cardiology has seen the patient.. CTA chest showed no cardiac strain. 2-D echocardiogram showed normal ejection fraction and no right ventricular strain. Patient is being discharged home with oral anticoagulants Xarelto. Patient was advised to follow with his primary care physician and continue with anticoagulation. 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 Paperwork Regarding his work restrictions has been feeling and faxed for the patient. PHYSICAL EXAMINATION: Patient is lying in the bed comfortably, no acute distress, awake alert and oriented.. HEENT: Normocephalic. Neck is supple. Pupils reactive. Nostrils clear. Oral cavity is moist. Ears reveal no drainage. Neck reveals no JVD, carotid bruits, or thyromegaly. CHEST EXAMINATION: Trachea is central. Symmetrical expansion. Lung ramey clear to auscultation and percussion. CARDIAC: Normal S1, S2 with no gallops. No murmurs ABDOMEN: Soft. Bowel sounds normal. No organomegaly. No abdominal bruits. Extremities: reveal no edema. No clubbing or cyanosis Neurologically awake, alert, oriented x3 with well-coordinated movements. No focal deficits noted Skin: No rash or skin lesions. Psychiatric: Operative. Nonsuicidal Musculoskeletal: No joint swelling or deformity. Normal range of motion. Total time taken greater than 35 minutes including 18 minutes for counseling and coordination of care. Patient Condition at Discharge: Good Plan - Discharge Summary Discharge Rx Participant: No New Discharge Prescriptions: New Rivaroxaban [Xarelto] 15 mg PO BID-W/MEALS 21 Days #42 tab Rivaroxaban [Xarelto] 20 mg PO W/SUPPER #30 tab Discharge Medication List Rivaroxaban [Xarelto] 15 mg PO BID-W/MEALS 21 Days #42 tab 03/11/17 [Rx] Rivaroxaban [Xarelto] 20 mg PO W/SUPPER #30 tab 04/01/17 [Rx] Follow up Appointment(s)/Referral(s): Antolin Morales MD [STAFF PHYSICIAN] - 2 Weeks (Please call to make appointment) Lj Hughes MD [STAFF PHYSICIAN] - 1 Week (Please call to make appointment) Nonstaff,Physician [Primary Care Provider] - 1-2 days (Please make appointment to be seen by your primary care doctor in a weeks time) Patient Instructions/Handouts: Pulmonary Embolism (DC), Safe Use of Anticoagulants (DC) Discharge Disposition: HOME SELF-CARE
[2017-04-01] MEDS ORDERED: RIVAROXABAN 10 MG TAB PO SCH (17:30)
== END 2017-03-11 14:42 | disposition home or self-care (01) | DRG 176 ==
LOC: EC 12:43 → 6SEL 15:31
PROVIDERS: ADMIT Hospitalist; ATTEND Hospitalist
DX: I26.99 Other pulmonary embolism without acute cor pulmonale (principal); I10 Essential (primary) hypertension; K21.9 Gastro-esophageal reflux disease without esophagitis; R79.1 Abnormal coagulation profile; Z82.49 Family history of ischemic heart disease and other diseases of the circulatory system; Z82.0 Family history of epilepsy and other diseases of the nervous system; Z87.891 Personal history of nicotine dependence; Z87.19 Personal history of other diseases of the digestive system; Z86.73 Personal history of transient ischemic attack (TIA), and cerebral infarction without residual deficits
CPT/HCPCS: 36415; 71010; 71275; 74177; 80053; 80061; 81003; 82550; 82553; 83605; 83690; 83735; 84100; 84484; 85025; 85379; 85610; 85730; 87086; 93005; 93306; 93970; 96361; 96374; 96375; 96376; 99285